=== PATIENT | female | born 1960 | race Asian ===

== ENCOUNTER 2018-08-06 19:20 | Emergency (ER) | payer BC ==
[~2018-08-06] VITALS: Ht 172.7 cm; Wt 61.0 kg
[2018-08-06 19:57] VITALS: Ht 172.7 cm; Wt 61.0 kg
[2018-08-06 21:19] VITALS: BP 117/64
== END 2018-08-06 21:19 | disposition home or self-care (01) ==
LOC: ED 19:20
DX: M62.838 Other muscle spasm (principal); V43.52XA Car driver injured in collision with other type car in traffic accident, initial encounter; Y93.I9 Activity, other involving external motion; Y92.89 Other specified places as the place of occurrence of the external cause; Y99.8 Other external cause status

== ENCOUNTER 2018-11-12 10:58 | Emergency (ER) | payer BC ==
[~2018-11-12] VITALS: Ht 172.7 cm; Wt 59.9 kg
[2018-11-12 12:03] LABS: CALCIUM 8.8 mg/dL (8.5-10.1); CARBON DIOXIDE 29.5 mmol/L (21-32); CHLORIDE SERUM 107 mmol/L (98-107); CREATININE SERUM 0.7 mg/dL (0.6-1.0); GFR1 > 60 mL/min; GLUCOSE SERUM 99 mg/dL (74-106); POTASSIUM SERUM 3.9 mmol/L (3.5-5.1); SODIUM SERUM 143 mmol/L (136-145)
[2018-11-12 12:05] LABS: BASOPHIL % 0.4 % (0-2); PLATELET COUNT 149 x10^3mcL (130-400); RED CELL DISTRIBUTION WIDTH 13.9 % (11.5-14.5)
[2018-11-12 12:13] LABS: ALBUMIN 3.4 g/dL (3.4-5.0); ALKALINE PHOSPHATASE 70 U/L (46-116); ALT/SGPT 28 U/L (14-59); AST/SGOT 18 U/L (15-37); BILIRUBIN TOTAL 0.4 mg/dL (0.20-1.00)
[2018-11-12 12:21] LABS: microscopic required? NO
[2018-11-12 12:34] LABS: urine erythrocyte NEGATIVE (NEGATIVE)
[2018-11-12 12:48] LABS: AMPHETAMINE QUAL UR NONE DETECTED (See below)
--- NOTE | 2018-11-12 19:48 | NUR ---
Packet was faxed to [facility], spoke with Emma. They have a possible bed, Emma will review the chart and call me if they can accommodate the patient.
[2018-11-12 21:33] VITALS: BP 93/53
== END 2018-11-12 21:33 ==
LOC: ED 10:58
PROVIDERS: Emergency Medicine
DX: F29 Unspecified psychosis not due to a substance or known physiological condition (principal)
CPT/HCPCS: 36415; G0480; Q0092